=== PATIENT | male | born 1945 | race Caucasian/White ===

== ENCOUNTER 2024-07-13 14:55 | Emergency (ER) | payer OTHER, MEDICARE, SELFPAY ==
[2024-07-13] VITALS (10 sets, daily range): BP systolic 71–149; BP diastolic 46–94; PULSE 61–107; RESP 14–22; TEMP 35.4; O2SAT 93–100; BMI 25.4
--- NOTE | 2024-07-13 15:19 | XR_ITS ---
WS: [id number] XR chest 1V portable [id number] REASON FOR EXAM: hypotension FINDINGS: Mild to moderate tortuosity of the thoracic aorta. Normal heart size. Calcified granulomatous disease in both hemithoraces. No acute pulmonary parenchymal or pleural abnormality is identified. Moderate degenerative spondylosis in the thoracic spine. XR/XR chest 1V portable [id number] IMPRESSION: No acute chest abnormality.
--- NOTE | 2024-07-13 15:20 | CTR_ITS ---
PROCEDURE INFORMATION: Exam: CT Abdomen And Pelvis Without Contrast Exam date and time: 07/13/2024 4:31 PM Age: 79 years old Clinical indication: Abdominal pain; Localized; Other: Left back; No trauma; Additional info: Back pain, hypotensive, hypothermia TECHNIQUE: Imaging protocol: Computed tomography of the abdomen and pelvis without contrast. Radiation optimization: All CT scans at this facility use at least one of these dose optimization techniques: automated exposure control; mA and/or kV adjustment per patient size (includes targeted exams where dose is matched to clinical indication); or iterative reconstruction. COMPARISON: CR XR chest 1V portable [id number] 07/13/2024 3:40 PM RADIATION DOSE METRICS: Total DLP (mGy-cm): 786.61 FINDINGS: Diaphragm: Mild elevation of the left hemidiaphragm. Liver: A few small low-density lesions in the liver are probably cysts, but the smaller are too small to accurately characterize. Otherwise, unremarkable liver. Gallbladder and biliary ducts: Normal. No calcified stones. No ductal dilation. Pancreas: Normal. No ductal dilation. Spleen: Normal. No splenomegaly. Adrenal glands: Normal. No mass. Kidneys and ureters: Large left renal subcapsular hematoma, most pronounced inferiorly, measuring at least 6 cm in maximum thickness. A large amount of blood extends from the left kidney hemorrhage into the left perirenal space, anterior left retroperitoneal space, and posterior left retroperitoneal space. The area of hemorrhage, overall, measures at least 25 cm in craniocaudal dimension. Blood does not obviously cross the midline, but comes near to the midline. The left kidney is distorted by the subcapsular portion of hemorrhage, so a page kidney could develop. Otherwise, unremarkable. Stomach and bowel: Some bowel in the pelvis is obscured. No obvious bowel pathology, but evaluation for such is markedly limited. Appendix: No evidence of appendicitis. Intraperitoneal space: No other free intraperitoneal fluid. No free air. Small hiatal hernia. Vasculature: Large amount of arterial calcification. Pelvic vasculature is somewhat obscured. Otherwise, unremarkable. Lymph nodes: No obvious lymphadenopathy. Urinary bladder: Most of the urinary bladder is obscured. Reproductive: Reproductive structures are obscured. Bones/joints: Mild scoliosis. Mild and moderate multilevel spondylosis. Bilateral hip arthroplasties cause streak artifact obscuring much of the inferior pelvis. Otherwise, unremarkable. Soft tissues: Portions of the pelvic wall are obscured by streak artifact. Small fat containing left inguinal hernia. Otherwise, unremarkable visualized body wall. Otherwise, unremarkable soft tissues. CT/CT abdomen pelvis wo con [id number] IMPRESSION: 1. Large left subcapsular renal hemorrhage. A page kidney could be developing. Extension of blood throughout much of the left retroperitoneal space from this renal hemorrhage over at least 25 cm in craniocaudal dimension. The exact etiology of this is uncertain, but is probably either spontaneous or due to an underlying mass. MRI with contrast could offer clarification if the patient can tolerate this. Additionally, a CT with contrast may offer some clarification. 2. A few small low-density lesions in the liver are probably cysts, but the smaller are too small to accurately characterize. Consider a follow-up CT in 6 months to ensure stability of these likely benign findings. 3. Additional details as above. COMMENTS: Consistent with the [employer]'s Incidental Findings Committee white paper (J Am Yumiko Radiol 2018): Any incidental renal lesion less than 1 cm or classified as too small to characterize, or any incidental cystic renal lesion characterized as simple-appearing, is likely benign. No follow-up imaging is recommended for these lesions per consensus recommendations based on imaging criteria.
--- NOTE | 2024-07-13 15:27 | ECG_ITS ---
[email or web address]: 2024-07[facility]13 Pat Name: Jose Jon Department: Room: Gender: Male Agency Owner: : [id number] Requested By: Viry Bertrand Order Number: [id number] Reading MD: BETH WARD Measurements Intervals [place] Rate: 72 P: 52 MS: 183 QRS: 66 QRSD: 86 T: 64 QT: 405 QTc: 444 Interpretive Statements SINUS RHYTHM WITH FREQUENT SUPRAVENTRICULAR PREMATURE COMPLEXES ABNORMAL RHYTHM ECG No previous ECG available for comparison Electronically Signed On 07-14-2024 19:33:31 PROGRAM EVALUATION CONSULTANT by BETH WARD [email or web address]
--- NOTE | 2024-07-13 15:27 | W.ED.BACK ---
Documented by User: GOLDIE Alexandre 07/13/24 20:05 HPI - Back Pain/Injury General: Chief Complaint: Back Pain/Injury Stated Complaint: back pain Time Seen by Provider: 07/13/24 15:08 Source: patient and EMS Mode of arrival: EMS Limitations: no limitations History of Present Illness: Patient is a 79-year-old male presents to ED today via EMS for complaint of back pain. He states back pain initially started 5 days or so ago after lifting something heavy. He was seen at the walk-in clinic and given some medications for this. He states today his back pain worsened and feels different . States I feel like I now have two different pains going on . Patient arrives and is extremely cold to the touch. He states he came from his home where he does have heat. Blood pressure upon arrival was 80s/50s. He is complaining of feeling wet from sweating. MD elicited complaint: back pain Onset (ago): day(s) Timing: constant Location: lumbar spine and left lower back Context: while lifting Associated symptoms: Deny dysuria, fever(s) or hematuria Related Data Previous Rx's ?Medication ?Instructions ?Recorded cyclobenzaprine 10 mg tablet 10 mg PO TID PRN muscle spasm #30 07/11/24 tabs ketorolac 10 mg tablet 10 mg PO Q6H PRN pain #60 tabs 07/11/24 Allergies Allergy/AdvReac Type Severity Reaction Status Date / Time No Known Allergies Allergy Verified 07/13/24 15:44 Review of Systems Const: Reports: diaphoresis; Denies: fever(s) Eyes: Denies: change in vision or blurry vision Card: Reports: lightheadedness; Denies: chest pain, palpitations, irregular heart rhythm or swelling of feet/ankles Resp: Denies: dyspnea : Denies: dysuria or hematuria Musc: Reports: back pain; Denies: neck pain, extremity pain, extremity swelling, joint pain, joint swelling, joint redness or joint warmth Neuro: Denies: headache(s) PFSH ED PFSH: Social History Smoking and tobacco/nicotine status: unknown if used tobacco/nicotine Physical Exam Const: COMMON NORMALS: average body habitus and alert GENERAL APPEARANCE: cooperative and ill appearing ORIENTATION/CONSCIOUSNESS: Yes awake, Yes oriented to person, Yes oriented to place and Yes oriented to time OTHER: cool to the touch, hypotensive, shirt is wet from diaphoresis HENMT: COMMON NORMALS: normocephalic and atraumatic HEAD & SCALP: normal to inspection, normocephalic and atraumatic Chest: COMMONS NORMALS: normal inspection of the chest and normal palpation of entire chest wall Resp: COMMON NORMALS: normal respiratory effort GI: PALPATION: Yes Tenderness to palpation present (GI) : COMMON NORMALS: Yes no CVA tenderness BLADDER/KIDNEY EXAM: Yes no CVA tenderness Back/Pelvis: COMMON NORMALS: no CVA tenderness BACK IMAGE (MALE):  1. TTP Extremity: NARRATIVE EXTREMITY EXAM: extremities are very cool to the touch; distal LE pulses are hard to appreciate Neuro: SENSORIUM/ORIENTATION: Yes alert, Yes oriented to person, Yes oriented to place and Yes oriented to time Course ED course: Patient is being moved out of room 9 to room 13 so we have continual monitoring. Dr. Johnson will assume care. Vital Signs: Vital signs: Vital Signs Temperature 95.7 F L 07/13/24 15:11 Pulse Rate 85 07/13/24 18:59 Respiratory Rate 14 07/13/24 18:15 Blood Pressure 149/87 07/13/24 18:59 Pulse Oximetry 100 07/13/24 18:59 Oxygen Delivery Me thod Room Air 07/13/24 15:11 MDM - Back Pain/Injury Labs 07/13/24 15:33 07/13/24 15:33 Radiology Impressions Chest X-Ray 07/13/24 15:19 IMPRESSION: No acute chest abnormality. Abdomen/Pelvis CT 07/13/24 15:20 IMPRESSION: 1. Large left subcapsular renal hemorrhage. A page kidney could be developing. Extension of blood throughout much of the left retroperitoneal space from this renal hemorrhage over at least 25 cm in craniocaudal dimension. The exact etiology of this is uncertain, but is probably either spontaneous or due to an underlying mass. MRI with contrast could offer clarification if the patient can tolerate this. Additionally, a CT with contrast may offer some clarification. 2. A few small low-density lesions in the liver are probably cysts, but the smaller are too small to accurately characterize. Consider a follow-up CT in 6 months to ensure stability of these likely benign findings. 3. Additional details as above. COMMENTS: Consistent with the [employer] [employer]'s Incidental Findings Committee white paper (J Am Yumiko Radiol 2018): Any incidental renal lesion less than 1 cm or classified as too small to characterize, or any incidental cystic renal lesion characterized as simple-appearing, is likely benign. No follow-up imaging is recommended for these lesions per consensus recommendations based on imaging criteria. ADDENDUM: 07/13/24 2670 ADDENDUM: THIS REPORT CONTAINS FINDINGS THAT MAY BE CRITICAL TO PATIENT CARE. The findings were verbally communicated via telephone conference with Dr. Johnson at 4:50 PM PRECISION LATHE OPERATOR on 07/13/2024. The findings were acknowledged and understood. Laboratory Results WBC 17.03 10^3/uL (3.29-11.43) H 07/13/24 15:33 RBC 3.36 10^6/uL (3.85-5.65) L 07/13/24 15:33 Hgb 10.20 g/dL (11.27-16.99) L 07/13/24 15:33 Hct 31.1 % (37-53) L 07/13/24 15:33 MCV 92.6 fl (82-101) 07/13/24 15: MCH 30.4 pg (27-33) 07/13/24 15: MCHC 32.8 g/dL (30-55) 07/13/24 15:33 RDW 12.6 % (12.1-15.1) 07/13/24 15:33 Plt Count 204 10^3/cmm (157-399) 07/13/24 15: MPV 9.2 fL (7.4-10.4) 07/13/24 15:33 Neut % (Auto) 82.1 % 07/13/24 15:33 Lymph % (Auto) 11.7 % 07/13/24 15:33 Canyon % (Auto) 3.4 % 07/13/24 15:33 Eos % (Auto) 1.8 % 07/13/24 15:33 Baso % (Auto) 0.4 % 07/13/24 15:33 Neut # (Auto) 13.98 10^3/uL (1.8-7.7) H 07/13/24 15:33 Lymph # (Auto) 2.0 10^3/uL (0.8-4.8) 07/13/24 15:33 Canyon # (Auto) 0.6 10^3/uL (0.2-0.9) 07/13/24 15: Eos # (Auto) 0.3 10^3/uL (0.0-0.8) 07/13/24 15: Baso # (Auto) 0.1 10^3/uL (0.0-0.1) 07/13/24 15: Nucleated RBC % (auto) 0 % 07/13/24 15: Nucleated RBCs # 0.0 /100WBC 07/13/24 15:33 Specimen Type Arterial 07/13/24 16:40 Sample Site Radial, left 07/13/24 16:40 ABG pH 7.32 (7.35-7.45) L 07/13/24 16:40 ABG pCO2 39.2 mmHg (35-45) 07/13/24 16:40 ABG pO2 99.9 mmHg (80.0-100.0) 07/13/24 16:40 ABG PO2/FiO2 Ratio 475 07/13/24 16:40 ABG HCO3 20.2 mmol/L (22-26) L 07/13/24 16:40 ABG O2 Saturation 98.1 07/13/24 16:40 ABG Base Excess -5.5 mmol/L (-2.0-2.0) L 07/13/24 16:40 Vaibhav Test Pos 07/13/24 16:40 A-a O2 Gradient 0.1 mmHg (5-10) L 07/13/24 16:40 Hematocrit 27.7 % (42-52) L 07/13/24 16:40 Hgb O2 Saturation 94.6 % (95-100) L 07/13/24 16:40 Carboxyhemoglobin 2.2 %THgb (0.4-20.1) 07/13/24 16:40 Methemoglobin 1.4 % (0.4-1.5) 07/13/24 16:40 Total Hemoglobin 9.0 g/dL (14-18) L 07/13/24 16:40 Sodium 137.0 mmol/L (131-143) 07/13/24 16:40 Potassium 3.7 mmol/L (3.5-5.0) 07/13/24 16:40 Glucose 196.0 mg/dL (70-115) H 07/13/24 16:40 Ionized Calcium 1.2 mmol/L (1.1-1.4) 07/13/24 16:40 O2 Delivery Device Room air 07/13/24 16:40 FiO2 21.0 % 07/13/24 16:40 Log Data Technician ID Walci 07/13/24 16:40 Sodium 138 mmol/L (136-145) 07/13/24 15:33 Potassium 3.7 mmol/L (3.5-5.1) 07/13/24 15:33 Chloride 101 mmol/L (98-107) 07/13/24 15:33 Carbon Dioxide 23 mmol/L (22-29) 07/13/24 15:33 Anion Gap 17.7 (5-19) 07/13/24 15:33 BUN 33 mg/dL (8-23) H 07/13/24 15:33 Creatinine 1.9 mg/dL (0.7-1.2) H 07/13/24 15:33 GFR Calculation Not Reportable 07/13/24 15:33 Glucose 257 mg/dL (65-115) H 07/13/24 15:33 POC Glucose 269 mg/dL (70-110) H 07/13/24 15:28 Calculated Osmolality 302 mOsm/kg (285-295) H 07/13/24 15:33 Lactic Acid 2.8 mmol/L (0.5-2.2) H 07/13/24 15:33 Lactic Acid (Sepsis) 1.7 mmol/L (0.5-2.2) 07/13/24 18:38 Calcium 8.4 mg/dL (8.5-10.5) L 07/13/24 15:33 Total Bilirubin 0.3 mg/dL (0.15-1.2) 07/13/24 15:33 AST 13 U/L (0-40) 07/13/24 15:33 ALT 10 U/L (0-41) 07/13/24 15:33 Alkaline Phosphatase 68 U/L (40-130) 07/13/24 15:33 Total Protein 5.7 g/dL (6.6-8.7) L 07/13/24 15:33 Albumin 3.9 g/dL (3.5-5.2) 07/13/24 15:33 Globulin 1.8 g/dL (1.3-4.6) 07/13/24 15:33 Urine Color Yellow (Yellow) 07/13/24 17:20 Urine Appearance Cloudy (CLEAR) A 07/13/24 17:20 Urine pH 5.0 (5-7) 07/13/24 17:20 Ur Specific Brohman 1.021 (1.005-1.030) 07/13/24 17:20 Urine Protein 2+ (Negative) A 07/13/24 17:20 Urine Glucose (UA) Negative (Normal) 07/13/24 17:20 Urine Ketones Trace (Negative) 07/13/24 17:20 Urine Blood 2+ (Negative) A 07/13/24 17:20 Urine Nitrate Negative (Negative) 07/13/24 17:20 Urine Bilirubin Negative (Negative) 07/13/24 17:20 Urine Urobilinogen 1.0 mg/dL (Negative) 07/13/24 17:20 Ur Leukocyte Esterase Trace (Negative) A 07/13/24 17:20 Urine RBC 21-50 /hpf (0-2) H 07/13/24 17:20 Urine WBC 6-10 /hpf (0-5) 07/13/24 17:20 Ur Squamous Epith Cells 0-5 /hpf (0-5) 07/13/24 17:20 Amorphous Sediment Not Reportable 07/13/24 17:20 Urine Bacteria None seen /hpf (NONE) 07/13/24 17:20 Hyaline Casts 17.37 /lpf 07/13/24 17:20 Fine Granular Casts 0-4 /lpf H 07/13/24 17:20 Serum Ketones Negative (Negative) 07/13/24 15:33 Coronavirus (PCR) Negative (Negative) 07/13/24 16:50 Influenza A (PCR) Negative (Negative) 07/13/24 16:50 Influenza Type B (PCR) Negative (Negative) 07/13/24 16:50 RSV (PCR) Negative (Negative) 07/13/24 16:50 Blood Type A Positive 07/13/24 17:31 Rho(D) Type Rh positive 07/13/24 17:31 Antibody Screen Negative 07/13/24 17:31 Discharge Plan Discharge Patient Disposition: Xfer Short-Term Hosp Clinical Impression: Renal hemorrhage, left, Retroperitoneal hemorrhage Condition: Stable Print Language: Venezuelan Coding Level of Care Code ED Drum Stock Clerk for Susan Fwd Documented by User: Eligio Johnson DO 07/14/24 06:20 HPI - Back Pain/Injury General: Chief Complaint: Back Pain/Injury Stated Complaint: back pain Time Seen by Provider: 07/13/24 15:08 History of Present Illness: 79-year-old male presents to ED today via EMS for complaint of back pain. He states back pain initially started 5 days or so ago after lifting something heavy. He was seen at the walk-in clinic and given some medications for this. He states today his back pain worsened and feels different . States I feel like I now have two different pains going on . Patient arrives and is extremely cold to the touch. He states he came from his home where he does have heat. Blood pressure upon arrival was 80s/50s. He is complaining of feeling wet from sweating. 79-year-old male presents to the emergency room with complaints primarily of back pain that this is sciatica. Radiates to the pelvis. Any movement makes it worse. He thinks it began after he did some initial heavy lifting about 5 days ago he states he felt like a popping sensation and since then has progressively gotten worse. He had been seen a few days after the popping sensation incident at a primary care clinic he was put on some anti-inflammatories. On arrival here the patient is pale and diaphoretic he is hypotensive. He has not had any hematochezia melena hematemesis coffee-ground versus no hematuria. No chest pain. He was noted to be mildly hypothermic on arrival his home has no heat Related Data Previous Rx's ?Medication ?Instructions ?Recorded cyclobenzaprine 10 mg tablet 10 mg PO TID PRN muscle spasm #30 07/11/24 tabs ketorolac 10 mg tablet 10 mg PO Q6H PRN pain #60 tabs 07/11/24 Allergies Allergy/AdvReac Type Severity Reaction Status Date / Time No Known Allergies Allergy Verified 07/13/24 15:44 PFSH ED PFSH: Social History Smoking and tobacco/nicotine status: unknown if used tobacco/nicotine Physical Exam Const: COMMON NORMALS: no acute distress GENERAL APPEARANCE: cooperative and comfortable ORIENTATION/CONSCIOUSNESS: Yes awake, Yes oriented to person, Yes oriented to place and Yes oriented to time OTHER: Skin cool to the touch. Patient diaphoretic and pale HENMT: COMMON NORMALS: normocephalic, atraumatic and hearing grossly normal bilaterally HEAD & SCALP: normocephalic and atraumatic Resp: COMMON NORMALS: normal respiratory effort, No retractions, No use of accessory muscles and clear to auscultation bilaterally AUSCULTATION: clear to auscultation bilaterally Cardio: COMMON NORMALS: regular rate, regular rhythm and No murmurs present (Cardio) RATE: regular rate RHYTHM: regular rhythm GI: COMMON NORMALS: Soft to palpation and No hepatosplenomegaly present AUSCULTATION: Yes normoactive bowel sounds PALPATION: Yes Soft to palpation, No Tenderness to palpation present (GI), No Guarding due to palpation present (GI) and Yes No hepatosplenomegaly present Back/Pelvis: BACK IMAGE (MALE):  1. TTP Extremity: COMMON NORMALS: normal to inspection, capillary refill normal, no clubbing, cyanosis or edema, no calf tenderness and no pedal edema Neuro: SENSORIUM/ORIENTATION: Yes oriented to person, Yes oriented to place and Yes oriented to time Skin: COMMON NORMALS: no rashes or lesions noted GENERAL SKIN EXAM: no rashes or lesions noted Course Vital Signs: Vital signs: Vital Signs Temperature 95.7 F L 07/13/24 15:11 Pulse Rate 85 07/13/24 18:59 Respiratory Rate 14 07/13/24 18:15 Blood Pressure 149/87 07/13/24 18:59 Pulse Oximetry 100 07/13/24 18:59 Oxygen Delivery Me thod Room Air 07/13/24 15:11 MDM - Back Pain/Injury Medical Decision Making Patient initially seen and evaluated by Viry Bertrand. Reinterviewed history of patient and examined patient myself see notes above. CT shows large left renal hematoma with extension into the retroperitoneal area. There is a question of a mass with but because of his kidney function we did not use contrast and is difficult to differentiate. He likely will need more extensive imaging. His blood pressure has responded to fluids. He is anemic and appears to have a mild acute kidney injury. A Fraire was placed monitor output. His white count is 17,000 we did culture him his and start him on IV antibiotics his lactate is slightly elevated however I think his lactic acidosis is due to localized hemorrhagic shock not sepsis. He did respond very well to fluid. Will transfer patient to the ER at [facility] he will need further and imaging including possible MRI and interventional radiology services for his retroperitoneal bleed. Medical Records I reviewed the patient's medical records. Labs I reviewed the patient's lab results. 07/13/24 15:33 07/13/24 15:33 Radiology Impressions Chest X-Ray 07/13/24 15:19 IMPRESSION: No acute chest abnormality. Abdomen/Pelvis CT 07/13/24 15:20 IMPRESSION: 1. Large left subcapsular renal hemorrhage. A page kidney could be developing. Extension of blood throughout much of the left retroperitoneal space from this renal hemorrhage over at least 25 cm in craniocaudal dimension. The exact etiology of this is uncertain, but is probably either spontaneous or due to an underlying mass. MRI with contrast could offer clarification if the patient can tolerate this. Additionally, a CT with contrast may offer some clarification. 2. A few small low-density lesions in the liver are probably cysts, but the smaller are too small to accurately characterize. Consider a follow-up CT in 6 months to ensure stability of these likely benign findings. 3. Additional details as above. COMMENTS: Consistent with the [employer] [place] [employer]'s Incidental Findings Committee white paper (J Am Yumiko Radiol 2018): Any incidental renal lesion less than 1 cm or classified as too small to characterize, or any incidental cystic renal lesion characterized as simple-appearing, is likely benign. No follow-up imaging is recommended for these lesions per consensus recommendations based on imaging criteria. ADDENDUM: 07/13/24 1700 ADDENDUM: THIS REPORT CONTAINS FINDINGS THAT MAY BE CRITICAL TO PATIENT CARE. The findings were verbally communicated via telephone conference with Dr. Johnson at 4:50 PM PRECISION LATHE OPERATOR on 07/13/2024. The findings were acknowledged and understood. Laboratory Results WBC 17.03 10^3/uL (3.29-11.43) H 07/13/24 15: RBC 3.36 10^6/uL (3.85-5.65) L 07/13/24 15: Hgb 10.20 g/dL (11.27-16.99) L 07/13/24 15: Hct 31.1 % (37-53) L 07/13/24 15: MCV 92.6 fl (82-101) 07/13/24 15: MCH 30.4 pg (27-33) 07/13/24 15: MCHC 32.8 g/dL (30-55) 07/13/24 15: RDW 12.6 % (12.1-15.1) 07/13/24 15: Plt Count 204 10^3/cmm (157-399) 07/13/24 15: MPV 9.2 fL (7.4-10.4) 07/13/24 15: Neut % (Auto) 82.1 % 07/13/24: Lymph % (Auto) 11.7 % 07/13/24 15: Canyon % (Auto) 3.4 % 07/13/24 15: Eos % (Auto) 1.8 % 07/13/24: Baso % (Auto) 0.4 % 07/13/24: Neut # (Auto) 13.98 10^3/uL (1.8-7.7) H 07/13/24 15: Lymph # (Auto) 2.0 10^3/uL (0.8-4.8) 07/13/24 15: Canyon # (Auto) 0.6 10^3/uL (0.2-0.9) 07/13/24 15: Eos # (Auto) 0.3 10^3/uL (0.0-0.8) 07/13/24: Baso # (Auto) 0.1 10^3/uL (0.0-0.1) 07/13/24: Nucleated RBC % (auto) 0 % 07/13/24 15: Nucleated RBCs # 0.0 /100WBC 07/13/24 15: Specimen Type Arterial 07/13/24 16:40 Sample Site Radial, left 07/13/24 16:40 ABG pH 7.32 (7.35-7.45) L 07/13/24 16:40 ABG pCO2 39.2 mmHg (35-45) 07/13/24 16:40 ABG pO2 99.9 mmHg (80.0-100.0) 07/13/24 16:40 ABG PO2/FiO2 Ratio 475 07/13/24 16:40 ABG HCO3 20.2 mmol/L (22-26) L 07/13/24 16:40 ABG O2 Saturation 98.1 07/13/24 16:40 ABG Base Excess -5.5 mmol/L (-2.0-2.0) L 07/13/24 16:40 Vaibhav Test Pos 07/13/24 16:40 A-a O2 Gradient 0.1 mmHg (5-10) L 07/13/24 16:40 Hematocrit 27.7 % (42-52) L 07/13/24 16:40 Hgb O2 Saturation 94.6 % (95-100) L 07/13/24 16:40 Carboxyhemoglobin 2.2 %THgb (0.4-20.1) 07/13/24 16:40 Methemoglobin 1.4 % (0.4-1.5) 07/13/24 16:40 Total Hemoglobin 9.0 g/dL (14-18) L 07/13/24 16:40 Sodium 137.0 mmol/L (131-143) 07/13/24 16:40 Potassium 3.7 mmol/L (3.5-5.0) 07/13/24 16:40 Glucose 196.0 mg/dL (70-115) H 07/13/24 16:40 Ionized Calcium 1.2 mmol/L (1.1-1.4) 07/13/24 16:40 O2 Delivery Device Room air 07/13/24 16:40 FiO2 21.0 % 07/13/24 16:40 Log Data Technician ID Walci 07/13/24 16:40 Sodium 138 mmol/L (136-145) 07/13/24 15:33 Potassium 3.7 mmol/L (3.5-5.1) 07/13/24 15:33 Chloride 101 mmol/L (98-107) 07/13/24 15:33 Carbon Dioxide 23 mmol/L (22-29) 07/13/24 15:33 Anion Gap 17.7 (5-19) 07/13/24 15:33 BUN 33 mg/dL (8-23) H 07/13/24 15: Creatinine 1.9 mg/dL (0.7-1.2) H 07/13/24 15:33 GFR Calculation Not Reportable 07/13/24 15: Glucose 257 mg/dL (65-115) H 07/13/24 15: POC Glucose 269 mg/dL (70-110) H 07/13/24 15:28 Calculated Osmolality 302 mOsm/kg (285-295) H 07/13/24 15: Lactic Acid 2.8 mmol/L (0.5-2.2) H 07/13/24 15: Lactic Acid (Sepsis) 1.7 mmol/L (0.5-2.2) 07/13/24 18:38 Calcium 8.4 mg/dL (8.5-10.5) L 07/13/24 15:33 Total Bilirubin 0.3 mg/dL (0.15-1.2) 07/13/24 15: AST 13 U/L (0-40) 07/13/24 15:33 ALT 10 U/L (0-41) 07/13/24 15:33 Alkaline Phosphatase 68 U/L (40-130) 07/13/24 15:33 Total Protein 5.7 g/dL (6.6-8.7) L 07/13/24 15: Albumin 3.9 g/dL (3.5-5.2) 07/13/24 15: Globulin 1.8 g/dL (1.3-4.6) 07/13/24 15:33 Urine Color Yellow (Yellow) 07/13/24 17:20 Urine Appearance Cloudy (CLEAR) A 07/13/24 17:20 Urine pH 5.0 (5-7) 07/13/24 17:20 Ur Specific Brohman 1.021 (1.005-1.030) 07/13/24 17:20 Urine Protein 2+ (Negative) A 07/13/24 17:20 Urine Glucose (UA) Negative (Normal) 07/13/24 17:20 Urine Ketones Trace (Negative) 07/13/24 17:20 Urine Blood 2+ (Negative) A 07/13/24 17:20 Urine Nitrate Negative (Negative) 07/13/24 17:20 Urine Bilirubin Negative (Negative) 07/13/24 17:20 Urine Urobilinogen 1.0 mg/dL (Negative) 07/13/24 17:20 Ur Leukocyte Esterase Trace (Negative) A 07/13/24 17:20 Urine RBC 21-50 /hpf (0-2) H 07/13/24 17:20 Urine WBC 6-10 /hpf (0-5) 07/13/24 17:20 Ur Squamous Epith Cells 0-5 /hpf (0-5) 07/13/24 17:20 Amorphous Sediment Not Reportable 07/13/24 17:20 Urine Bacteria None seen /hpf (NONE) 07/13/24 17:20 Hyaline Casts 17.37 /lpf 07/13/24 17:20 Fine Granular Casts 0-4 /lpf H 07/13/24 17:20 Serum Ketones Negative (Negative) 07/13/24 15:33 Coronavirus (PCR) Negative (Negative) 07/13/24 16:50 Influenza A (PCR) Negative (Negative) 07/13/24 16:50 Influenza Type B (PCR) Negative (Negative) 07/13/24 16:50 RSV (PCR) Negative (Negative) 07/13/24 16:50 Blood Type A Positive 07/13/24 17:31 Rho(D) Type Rh positive 07/13/24 17:31 Antibody Screen Negative 07/13/24 17:31 All radiology interpretation(s) finalized by discharge Discharge Plan Discharge Patient Disposition: Xfer Short-Term Hosp Clinical Impression: Renal hemorrhage, left, Retroperitoneal hemorrhage Condition: Stable Print Language: Venezuelan Coding Level of Care Code ED Drum Stock Clerk for Susan Mcintosh
[2024-07-13 15:31] LABS: Glucose Point of Care 269 mg/dL (70-110)
[2024-07-13 15:50] LABS: Basophils # 0.1 10^3/uL (0.0-0.1); Basophils % 0.4 %; Eosinophils # 0.3 10^3/uL (0.0-0.8); Eosinophils % 1.8 %; Hematocrit 31.1 % (37-53); Lymphocytes % 11.7 %; Mean Corpuscular HGB Conc 32.8 g/dL (30-55); Mean Corpuscular Hemoglobin 30.4 pg (27-33); Mean Corpuscular Volume 92.6 fl (82-101); Mean Platelet Volume 9.2 fL (7.4-10.4); Monocytes # 0.6 10^3/uL (0.2-0.9); Monocytes % 3.4 %; Neutrophils # 13.98 10^3/uL (1.8-7.7); Neutrophils % 82.1 %; Nucleated Red Blood Cells % 0 %; Platelet Count 204 10^3/cmm (157-399); Red Blood Count 3.36 10^6/uL (3.85-5.65); Red Cell Distribution Width 12.6 % (12.1-15.1); White Blood Count 17.03 10^3/uL (3.29-11.43)
--- NOTE | 2024-07-13 15:54 | PC.PHAR ---
Patient took both medications today at 6am and 12pm.
[2024-07-13 16:18] LABS: Alanine Aminotransferase 10 U/L (0-41); Albumin Level 3.9 g/dL (3.5-5.2); Alkaline Phosphatase 68 U/L (40-130); Anion Gap 17.7 (5-19); Aspartate Amino Transferase 13 U/L (0-40); Blood Urea Nitrogen 33 mg/dL (8-23); Calcium 8.4 mg/dL (8.5-10.5); Carbon Dioxide 23 mmol/L (22-29); Chloride 101 mmol/L (98-107); Creatinine Clr Calc Pharmacy 34.4056; Globulin 1.8 g/dL (1.3-4.6); Glucose 257 mg/dL (65-115); Lactic Sepsis W/Reflex 2.8 mmol/L (0.5-2.2); Osmolality Calculated 302 mOsm/kg (285-295); Potassium 3.7 mmol/L (3.5-5.1); Sodium 138 mmol/L (136-145); Total Bilirubin 0.3 mg/dL (0.15-1.2); Total Protein 5.7 g/dL (6.6-8.7)
[2024-07-13] MEDS: levofloxacin-dextrose 5 % 750 MG/150 ML PREMIX 100 MG IV (16:36)
[2024-07-13 16:51] LABS: ABG PCO2 39.2 mmHg (35-45); ABG PH Result 7.32 (7.35-7.45); Alveolar-Arterial Oxygen Gradi 0.1 mmHg (5-10); Arterial Blood Gas Hematocrit 27.7 % (42-52); Base Excess ABG -5.5 mmol/L (-2.0-2.0); Blood Gas Allen Test Pos; Blood Gas Operator Identificat WALCI; Blood Gas Sample Site Radial, left; Blood Gas Sample Type Arterial; Carboxyhemoglobin 2.2 %THgb (0.4-20.1); HCO3 ABG 20.2 mmol/L (22-26); HGB O2 Sat 94.6 % (95-100); Ionized Calcium Level - ABG 1.2 mmol/L (1.1-1.4); Methemoglobin 1.4 % (0.4-1.5); Oxygen Device ROOM AIR; Oxygen Saturation ABG 98.1; PO2 ABG 99.9 mmHg (80.0-100.0); PO2 FiO2 Ratio Arterial Blood 475; Potassium Level - ABG 3.7 mmol/L (3.5-5.0)
[2024-07-13 17:06] LABS: Ketone (Acetest) Serum Negative (Negative)
[2024-07-13 17:34] LABS: Reflex Lactate Order REFLEX LACTIC ORDERD
[2024-07-13] MEDS: lidocaine 2% Urojet 20 mL TOPICAL (17:36)
[2024-07-13] MEDS: tranexamic acid 1,000 MG/100 ML PREMIX 600 MG IV (17:47)
[2024-07-13 17:48] LABS: Influenza A NEGATIVE (Negative); Influenza B NEGATIVE (Negative); Respiratory Syncytial Virus Ce NEGATIVE (Negative); SARS-CoV-2 PCR NEGATIVE (Negative)
[2024-07-13 18:12] LABS: Bilirubin Urine Negative (Negative); Blood Urine 2+ (Negative); Glucose Urine UA Negative (Normal); Ketones Urine Trace (Negative); Leukocyte Esterase Urine Trace (Negative); Nitrate Urine Negative (Negative); Protein Urine 2+ (Negative); Specific Gravity, Urine 1.021 (1.005-1.030); Urine Appearance Cloudy (CLEAR); Urine Color Yellow (Yellow)
[2024-07-13 18:17] LABS: Add Urine Microscopic? YES; Bacteria Urine None Seen /hpf; Hyaline Casts Urine 17.37 /lpf; RBC Urine 21-50 /hpf (0-2); Squamous Epithelial Cell Urine 0-5 /hpf (0-5)
[2024-07-13 18:40] LABS: Add Urine Culture? Yes; Fine Granular Casts Urine 0-4 /lpf; UA Slide Review UA Slide Review Perf
[2024-07-13 19:01] LABS: Lactic Acid level (Lactate) 1.7 mmol/L (0.5-2.2)
== END 2024-07-13 19:01 | disposition short-term general hospital (02) ==
PROVIDERS: Physician Assistant; Emergency Provider Family Medicine
DX: N28.89 Other specified disorders of kidney and ureter (principal); K68.3 Retroperitoneal hematoma; Z11.52 Encounter for screening for COVID-19
CPT/HCPCS: 36415; 36416; 36600; 51702; 71045; 74176; 80051; 80053; 81001; 82009; 82330; 82805; 82962; 83605; 85025; 86850; 86900; 87040; 87086; 87637; 93005; 96361; 96374; 96375; 99285; J1956; J7030

== ENCOUNTER → 2024-07-19 09:00 | Outpatient (BNVA) | payer OTHER, MEDICARE, SELFPAY | PROVIDERS: PCP Nurse Practitioner Family; Visit Provider Nurse Practitioner Family | DX: N28.89 Other specified disorders of kidney and ureter (principal) | CPT/HCPCS: 80048; 85025 ==